=== PATIENT | male | born 1950 | race Caucasian/White ===

== ENCOUNTER 2021-02-22 12:32 | Emergency (ER) | payer MEDICARE, OTHER ==
[~2021-02-22] VITALS: Ht 177.8 cm; Wt 114.0 kg
[2021-02-22] MEDS ORDERED: WARFARIN SODIUM5 MG PO (13:56)
[2021-02-22] MEDS ORDERED: OMEPRAZOLE20 MG PO (13:56)
[2021-02-22] MEDS ORDERED: METOPROLOL SUCC25 MG PO (13:56)
[2021-02-22] MEDS ORDERED: REFRESH TEARS15 ML (13:56)
[2021-02-22] MEDS ORDERED: EZETIMIBE10 MG PO (13:57)
[2021-02-22] MEDS ORDERED: ROSUVASTATIN CA40 MG PO (13:57)
[2021-02-22] MEDS ORDERED: CLOPIDOGREL75 MG PO (13:57)
[2021-02-22] MEDS ORDERED: MECLIZINE HCL25 MG PO (13:57)
[2021-02-22] MEDS ORDERED: CITALOPRAM HBR40 MG PO (13:58)
[2021-02-22] MEDS ORDERED: GABAPENTIN600 MG PO (13:58)
[2021-02-22] MEDS ORDERED: PLAVIX75 MG PO (13:59)
== END 2021-02-22 16:25 | disposition home or self-care (01) ==
LOC: ED 12:32
DX: Z76.0 Encounter for issue of repeat prescription (principal); I10 Essential (primary) hypertension; E78.00 Pure hypercholesterolemia, unspecified; J44.9 Chronic obstructive pulmonary disease, unspecified; Z88.5 Allergy status to narcotic agent; Z79.899 Other long term (current) drug therapy; Z79.01 Long term (current) use of anticoagulants
CPT/HCPCS: 99281